=== PATIENT | female | born 1985 | race Caucasian/White ===

== ENCOUNTER 2017-12-31 19:35 | Emergency (ER) | payer MEDICAID ==
[~2017-12-31] VITALS: Ht 162.6 cm; Wt 74.9 kg
[~2017-12-31 19:35] MED LIST: HYDR-569 PO; NAPR-56 PO; ONDA8TAB6 PO
[2017-12-31] MEDS ORDERED: IBUP-1984 PO (21:07)
[2017-12-31] MEDS ORDERED: CEPH500C5 PO (21:07)
[2017-12-31] MEDS ORDERED: SULF1TAB49 PO (21:07)
[2017-12-31] MEDS ORDERED: COD30T PO (21:07)
[2017-12-31 21:14] VITALS: BP 128/98
== END 2017-12-31 21:17 | disposition home or self-care (01) ==
LOC: ER 19:36
DX: L03.012 Cellulitis of left finger (principal)
CPT/HCPCS: 99283

== ENCOUNTER 2018-11-12 20:58 | Emergency (ER) | payer MEDICAID ==
[~2018-11-12] VITALS: Ht 162.6 cm; Wt 74.0 kg
[~2018-11-12 20:58] MED LIST changes: +CEPH500C5 PO; +HYDR-4383 PO; -HYDR-569 PO
[2018-11-12 21:01] VITALS: BP 145/105
[2018-11-12] MEDS ORDERED: ALBU6.7H INH (22:23)
[2018-11-12] MEDS ORDERED: GUAI-647 PO (22:23)
[2018-11-12] MEDS ORDERED: PRED20TA PO (22:23)
[2018-11-12] MEDS ORDERED: AZIT250T2 PO (22:23)
== END 2018-11-12 22:39 | disposition home or self-care (01) ==
LOC: ER 20:59
DX: J20.9 Acute bronchitis, unspecified (principal); F41.9 Anxiety disorder, unspecified; G47.30 Sleep apnea, unspecified; Z79.899 Other long term (current) drug therapy
CPT/HCPCS: 99283

== ENCOUNTER 2019-03-04 23:40 | Emergency (ER) | payer MEDICAID ==
[~2019-03-04] VITALS: Ht 162.6 cm; Wt 76.3 kg
[~2019-03-04 23:40] MED LIST changes: +ALBU6.7H INH; -CEPH500C5 PO
[2019-03-04] MEDS ORDERED: LORazepam 0.5 MG tablet PO PRN (23:50)
[2019-03-05 00:40] LABS: ALANINE AMINOTRANSFERASE 40 U/L (12-78); ALBUMIN 4.2 G/DL (3.4-5.0); ALBUMIN/GLOBULIN RATIO 1.1 (1.1-1.5); ALKALINE PHOSPHATASE 77 IU/L (46-116); ANION GAP 13 (8-16); ASPARTATE AMINO TRANSFERASE 26 U/L (10-37); BILIRUBIN,TOTAL 0.4 MG/DL (0.1-1.0); BLOOD UREA NITROGEN 14 MG/DL (7-18); BUN/CREATININE RATIO 15.2 (6.6-38.0); CALCIUM 9.9 MG/DL (8.5-10.1); CHLORIDE 101 MMOL/L (99-107); CREATININE 0.92 MG/DL (0.40-0.90); GLUCOSE 126 MG/DL (70-104); POTASSIUM 3.5 MMOL/L (3.5-5.1); SODIUM 136 MMOL/L (135-145); TOTAL PROTEIN 8.1 G/DL (6.4-8.2); eGFR 70 ML/MIN
[2019-03-05 01:49] VITALS: BP 144/91
== END 2019-03-05 01:50 | disposition home or self-care (01) ==
LOC: ER 23:41
DX: R07.89 Other chest pain (principal); F41.9 Anxiety disorder, unspecified
CPT/HCPCS: 36415; 71045; 80053; 83880; 84484; 93005; 99284

== ENCOUNTER 2019-08-20 13:37 | Emergency (ER) | payer MEDICAID, OTHER ==
[~2019-08-20] VITALS: Ht 162.6 cm; Wt 77.9 kg
[~2019-08-20 13:37] MED LIST changes: -ALBU6.7H INH; +ALBU6.7H9 INH
[2019-08-20 13:41] VITALS: BP 139/94
[2019-08-20] MEDS ORDERED: AMOX-580 PO (14:37)
== END 2019-08-20 15:02 | disposition home or self-care (01) ==
LOC: ER 13:38
DX: J32.9 Chronic sinusitis, unspecified (principal); J02.0 Streptococcal pharyngitis; Z79.899 Other long term (current) drug therapy
CPT/HCPCS: 99283

== ENCOUNTER 2019-10-24 00:08 | Emergency (ER) | payer OTHER ==
[~2019-10-24] VITALS: Ht 162.6 cm; Wt 75.0 kg
--- NOTE | 2019-10-24 00:31 | NUR ---
Dr Cotton at bedside to goldie pt
[2019-10-24] MEDS ORDERED: LORazepam 0.5 MG tablet PO PRN (00:40)
[2019-10-24] MEDS ORDERED: predniSONE 20 mg tablet PO ONE (00:40)
[2019-10-24] MEDS ORDERED: benzonatate 100mg capsule PO ONE (00:55)
[2019-10-24 01:29] LABS: PARTIAL THROMBOPLASTIN TIME 26 SECONDS (22-32)
[2019-10-24 01:31] LABS: ALANINE AMINOTRANSFERASE 23 U/L (12-78); ALBUMIN 3.7 G/DL (3.4-5.0); ALKALINE PHOSPHATASE 67 IU/L (46-116); ANION GAP 10 (8-16); ASPARTATE AMINO TRANSFERASE 18 U/L (10-37); BILIRUBIN,TOTAL 0.1 MG/DL (0.1-1.0); BLOOD UREA NITROGEN 11 MG/DL (7-18); BUN/CREATININE RATIO 14.5 (6.6-38.0); CALCIUM 8.7 MG/DL (8.5-10.1); CHLORIDE 105 MMOL/L (99-107); CREATININE 0.76 MG/DL (0.40-0.90); GLUCOSE 96 MG/DL (70-104); POTASSIUM 3.2 MMOL/L (3.5-5.1); SODIUM 140 MMOL/L (135-145); TOTAL CARBON DIOXIDE 25.2 MMOL/L (24-32); TOTAL PROTEIN 7.4 G/DL (6.4-8.2); eGFR 87 ML/MIN
[2019-10-24 01:33] LABS: D-DIMER < 0.19 MG/L FEU (0-0.50)
[2019-10-24] MEDS ORDERED: guaiFENesin/codeine phos 10ml UD oral syrup PO ONE (01:35)
[2019-10-24] MEDS ORDERED: potassium Cl 20 mEq SR tablet PO ONE (01:50)
[2019-10-24] MEDS ORDERED: PRED10TA PO (02:04)
[2019-10-24] MEDS ORDERED: ALBU8.5H8 IH (02:04)
[2019-10-24] MEDS ORDERED: GUAI-647 PO (02:04)
[2019-10-24] MEDS ORDERED: MELA5TAB12 PO (02:13)
[2019-10-24 02:25] VITALS: BP 120/71
== END 2019-10-24 02:28 | disposition home or self-care (01) ==
LOC: ER 00:09
DX: J20.9 Acute bronchitis, unspecified (principal); Z79.899 Other long term (current) drug therapy
CPT/HCPCS: 36415; 71045; 80053; 84484; 85379; 85610; 85730; 93005; 99284; J7512

== ENCOUNTER 2020-01-23 13:38 | Emergency (ER) | payer OTHER ==
[~2020-01-23] VITALS: Ht 162.6 cm; Wt 79.8 kg
[~2020-01-23 13:38] MED LIST changes: +ALBU8.5H8 IH; +MELA5TAB12 PO; +PRED10TA PO
[2020-01-23 13:41] VITALS: BP 131/78
== END 2020-01-23 15:44 | disposition home or self-care (01) ==
LOC: ER 13:38
DX: M25.561 Pain in right knee (principal); F12.90 Cannabis use, unspecified, uncomplicated; Z79.899 Other long term (current) drug therapy; X50.1XXA Overexertion from prolonged static or awkward postures, initial encounter; Y93.89 Activity, other specified; Y92.89 Other specified places as the place of occurrence of the external cause; Y99.9 Unspecified external cause status
CPT/HCPCS: 99283